=== PATIENT | female | born 1935 | race Caucasian/White ===

== ENCOUNTER → 2020-09-10 | Outpatient (CLI) | payer OTHER | LOC: EMI 12:43 | DX: M25.571 Pain in right ankle and joints of right foot (principal); S82.891A Other fracture of right lower leg, initial encounter for closed fracture | CPT/HCPCS: 73721 ==

== ENCOUNTER → 2021-07-27 | Outpatient (CLI) | payer OTHER | LOC: KOH-I 14:01 | DX: M25.571 Pain in right ankle and joints of right foot (principal); M79.89 Other specified soft tissue disorders | CPT/HCPCS: 73610 ==